=== PATIENT | male | born 1955 | race Two or more races ===

== ENCOUNTER 2016-12-22 10:12 | Emergency (ER) | payer SELFPAY ==
[~2016-12-22] VITALS: Ht 167.6 cm; Wt 63.5 kg
[2016-12-22 11:59] LABS: BASOPHIL % 0.8 % (0-2); PLATELET COUNT 235 x10^3mcL (130-400); RED CELL DISTRIBUTION WIDTH 13.7 % (11.5-14.5)
[2016-12-22 12:06] LABS: CALCIUM 8.8 mg/dL (8.5-10.1); CARBON DIOXIDE 27.5 mmol/L (21-32); CHLORIDE SERUM 102 mmol/L (98-107); CREATININE SERUM 0.9 mg/dL (0.7-1.3); GFR1 > 60 mL/min; GLUCOSE SERUM 231 mg/dL (74-106); POTASSIUM SERUM 4.1 mmol/L (3.5-5.1); SODIUM SERUM 136 mmol/L (136-145)
[2016-12-22 12:10] LABS: ALBUMIN 3.9 g/dL (3.4-5.0); ALKALINE PHOSPHATASE 70 U/L (46-116); ALT/SGPT 69 U/L (16-63); AST/SGOT 53 U/L (15-37); BILIRUBIN TOTAL 0.57 mg/dL (0.20-1.00); LIPASE 234 IU/L (73-393); TOTAL PROTEIN, SERUM 7.7 g/dL (6.4-8.2)
[2016-12-22 14:19] VITALS: BP 110/64
== END 2016-12-22 14:19 | disposition home or self-care (01) ==
LOC: ED 10:12
PROVIDERS: Emergency Medicine
DX: R42 Dizziness and giddiness (principal); K21.9 Gastro-esophageal reflux disease without esophagitis; E11.9 Type 2 diabetes mellitus without complications; I10 Essential (primary) hypertension; Z79.84 Long term (current) use of oral hypoglycemic drugs
CPT/HCPCS: 82962; 83880; J1885; J2405; J2765; J3490; J7030